=== PATIENT | female | born 1930 | race Caucasian/White ===

== ENCOUNTER 2016-11-04 17:49 | Inpatient (IN) | payer OTHER ==
[~2016-11-04] VITALS: Ht 152.4 cm; Wt 68.0 kg
--- NOTE | 2016-11-04 18:03 | NUR ---
PT STATES SHE HAS HAD CHEST PAIN ON AND OFF FOR A WHILE WENT TO SEE HER PCP AND HAD EKG CHANGES SO SHE WAS SENT IN FOR EVAL. PT STATES SHE DOES HAVE SLIGHT CHEST PAIN RIGHT NOW AND SHE IS FEELING DIZZY. PT DENIES DIAPHORESIS DURING HER CHEST DISCOMFORT.
[2016-11-04] MEDS ORDERED: METFORMIN HCL500 M3 PO (18:17)
[2016-11-04] MEDS ORDERED: LOSARTAN-HCTZ1 EAC1 PO (18:17)
[2016-11-04] MEDS ORDERED: CITALOPRAM HBR20 MG PO (18:17)
[2016-11-04] MEDS ORDERED: GABAPENTIN100 M2 PO (18:18)
--- NOTE | 2016-11-04 18:32 | NUR ---
FAMILIA GARCIA TO BEDSIDE FOR PT EVAL.
[2016-11-04 18:40] LABS: ABSOLUTE BASOPHIL COUNT 0 /CUMM (0.0-0.2); ABSOLUTE EOSINOPHIL COUNT 0.1 /CUMM (0.0-0.7); ABSOLUTE GRANULOCYTE CT 3.5 /CUMM (1.4-6.5); ABSOLUTE LYMPH COUNT 1.9 /CUMM (1.2-3.4); ABSOLUTE MONOCYTE COUNT 0.5 /CUMM (0.10-0.60); BASOPHIL % 0.4 % (0.0-2.0); EOSINOPHIL % 1.6 % (0-5); GRANULOCYTE % 58.2 % (42.2-75.2); HEMATOCRIT 39.5 % (37-47); MEAN CORPUSCULAR HGB CONC 32.6 G/DL (33.0-37.0); MEAN CORPUSCULAR VOLUME 82.8 FL (81.0-99.0); MEAN PLATELET VOLUME 7.7 FL (7.4-10.4); PLATELET COUNT 270 /CUMM (130-400); RBC DISTRIBUTION WIDTH 14.6 % (11.5-14.5); RED BLOOD CELL CT 4.77 /CUMM (4.20-5.40)
--- NOTE | 2016-11-04 18:43 | ED CARDIAC/CP/PALPITATIONS ---
History of Present Illness General Chief Complaint: Chest Pain Stated Complaint: SIB DR. APONTE FOR EVAL OF ABNORMAL EKG Source: patient, family, old records Exam Limitations: no limitations Vital Signs & Intake/Output Vital Signs & Intake/Output Vital Signs Date Time Temp Pulse Resp B/P B/P Pulse O2 O2 Flow FiO2 Mean Ox Delivery Rate 11/04 2252 98.0 74 20 122/80 96 11/04 2226 95.7 73 16 130/56 97 Room Air 11/04 2000 95.4 80 16 119/74 97 Room Air 11/04 1833 97 Room Air 11/04 1803 97.1 82 16 144/81 96 Room Air Allergies Coded Allergies: Iodinated Contrast Media - Oral and (PER PT STATES SHE TAKES AN ALTERNATIVE VERSION 11/04/16) Sulfa (Sulfonamide Antibiotics) (PT DOESNT REMEMBER 11/04/16) ciprofloxacin (UNKNOWN 11/04/16) shellfish derived (ANAPHYLAXIS 11/04/16) Triage Note: PT STATES SHE HAS HAD CHEST PAIN ON AND OFF FOR A WHILE WENT TO SEE HER PCP AND HAD EKG CHANGES SO SHE WAS SENT IN FOR EVAL. PT STATES SHE DOES HAVE SLIGHT CHEST PAIN RIGHT NOW AND SHE IS FEELING DIZZY. PT DENIES DIAPHORESIS DURING HER CHEST DISCOMFORT. Triage Nurses Notes Reviewed? yes Onset: Abrupt Duration: week(s):, intermittent Timing: recent history Radiation: no radiation Activities at Onset: none HPI: 86-year-old female comes into the emergency room for further evaluation of intermittent chest pain and EKG changes that were reported by her primary care doctor. 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 Patient went to a cardiac workup with Dr. Hung's group and had an abnormal stress test. Patient was following up with her primary care doctor today and had a routine EKG done which showed some changes from the previous. She also admitted that she was having some intermittent chest pain. She denies any shortness of breath or current chest pain. Denies any diaphoresis or vomiting. Denies any other associated symptoms. (ERIK CONTRERAS) Reconcile Medications Citalopram Hydrobromide (Citalopram HBr) 20 MG TABLET 2 TAB PO DAILY ANXIETY (Reported) Gabapentin 100 MG CAPSULE 1 CAP PO BID NERVE PAIN (Reported) Losartan/Hydrochlorothiazide (Losartan-Hctz 50-12.5 MG Tab) 50 MG-12.5 MG TABLET 1 TAB PO DAILY BP (Reported) Metformin HCl 500 MG TABLET 1 TAB PO BID DM (Reported) (INNA VAZQUEZ,NAMRATA Lr) Past History Travel History Traveled to [place] past 21 day No Medical History Any Pertinent Medical History? see below for history EENT: TINITIS Endocrine: diabetes Surgical History Surgical History: left knee Psychosocial History What is your primary language French Tobacco Use: Never used ETOH Use: occasional use Illicit Drug Use: denies illicit drug use Family History Hx Contributory? No (ERIK CONTRERAS) Review of Systems Review of Systems Constitutional: Reports: no symptoms. EENTM: Reports: no symptoms. Respiratory: Reports: no symptoms. Cardiovascular: Reports: see HPI. GI: Reports: no symptoms. Genitourinary: Reports: no symptoms. Musculoskeletal: Reports: no symptoms. Skin: Reports: no symptoms. Neurological/Psychological: Reports: no symptoms. Hematologic/Endocrine: Reports: no symptoms. Immunologic/Allergic: Reports: no symptoms. All Other Systems: Reviewed and Negative (ERIK CONTRERAS) Physical Exam Physical Exam General Appearance: well developed/nourished, alert, awake Head: atraumatic, normal appearance Eyes: Bilateral: normal appearance. Ears, Nose, Throat: normal pharynx, normal ENT inspection, hearing grossly normal Neck: normal inspection Respiratory: normal breath sounds, no respiratory distress Cardiovascular: regular rate/rhythm Gastrointestinal: soft, non-tender Back: normal inspection Extremities: normal inspection, no edema Neurologic/Psych: awake, alert, oriented x 3, normal gait Skin: intact, normal color Core Measures ACS in differential dx? Yes Severe Sepsis Present: No Septic Shock Present: No (ERIK CONTRERAS) Progress Differential Diagnosis: AMI, aortic dissection, atrial fibrillation, cholecystitis, costochondritis, hyperkalemia, intracranial hemorrhage, musculoskeletal pain, myocarditis, pancreatitis, pericarditis, pneumonia, pneumothorax, PSVT, pulmonary embolism, PUD/GERD, respiratory failure, rib fracture, sepsis, unstable angina, V-fib/V-Tach, WPW syndrome Plan of Care: Orders Procedure Date/time Status Regular Diet 11/05 B Active TROPONIN LEVEL 11/05 599 Active LIPID PANEL 11/05 599 Active CBC WITHOUT DIFFERENTIAL 11/05 599 Active BASIC ELECTROLYTES PLUS BUN&CR 11/05 599 Active EKG 04/25 0600 Active TROPONIN LEVEL 11/05 0000 Active EKG 11/05 0000 Active Consistent Carbohydrate 2 11/04 D Complete Teach/Educate 11/04 2226 Active Pain Treatment and Response 11/04 2226 Active Nutritional Intake, Monitor 11/04 2226 Active Isolation 11/04 2226 Active Patient Care Conference 11/04 2226 Active Code Status 11/04 2199 Active Code Status 11/04 2140 Complete OXYGEN SETUP (GEN) 11/04 2138 Active Saline Lock 11/04 2138 Active Misc Message 11/04 2138 Active ED Holding Orders 11/04 2138 Active Activity/Ambulation 11/04 2138 Active Admit to inpatient 11/04 2137 Active Pathway - chart 11/05 2127 Active Patient Data 11/04 2050 Active Intake & Output 11/04 183 Active Telemetry/Virtualization Consultant 11/04 1816 Active TROPONIN LEVEL 11/04 181 Complete COMPREHENSIVE METABOLIC PANEL 11/04 1816 Complete CBC WITHOUT DIFFERENTIAL 11/04 181 Complete B-TYPE NATRIURETIC PEP (BNP) 11/04 1816 Complete EKG 11/04 1750 Active Pathway - chart 11/04 UNK Active House Staff 11/04 UNK Active VTE Mechanical Prophylaxis 11/04 UNK Active Vital Signs 11/04 UNK Active FingerStick- Glucose 11/04 UNK Active ECHOCARDIOGRAM 11/04 UNK Active Current Medications Sig/Angela Start time Last Medication Dose Stop Time Status Admin Atorvastatin Calcium 80 MG 1700 11/05 1700 AC (Lipitor) Citalopram 40 MG DAILY 11/05 1000 AC Hydrobromide (Celexa) Losartan Potassium 50 MG DAILY 11/05 1000 AC (Cozaar) Multivitamins 1 TAB DAILY 11/05 1000 CAN (Theragran Vitamins) Insulin Aspart 0 TIDAC 11/05 0800 CAN (NovoLOG) Metformin HCl 500 MG 0800,1700 11/05 0800 AC (Glucophage) Gabapentin 100 MG BID 11/04 2200 AC 11/04 (Neurontin) 2232 Heparin Sodium 5,000 UNIT Q8 11/04 2199 AC (Porcine) Acetaminophen 650 MG Q6P PRN 11/04 2129 AC (Tylenol) Acetaminophen/ 1 TAB Q6P PRN 11/04 2129 AC Hydrocodone Bitart (Vicodin) Hydromorphone HCl 0.5 MG Q4P PRN 11/04 2129 AC (Dilaudid) Laboratory Tests 11/04/16 1830: Anion Gap 12, Estimated GFR > 60, BUN/Creatinine Ratio 22.9, Glucose 107 H, Calcium 9.4, Total Bilirubin 0.5, AST 18, ALT 33, Alkaline Phosphatase 99, Troponin I < 0.01, Bvb-J-Hjynoobzwts Pept 173 H, Total Protein 6.8, Albumin 3.9 , Globulin 2.9, Albumin/Globulin Ratio 1.3, CBC w Diff NO MAN DIFF REQ, RBC 4.77 , MCV 82.8, MCH 27.0, RDW 14.6 H, MPV 7.7, Gran % 58.2, Lymphocytes % 31.3, Monocytes % 8.5, Eosinophils % 1.6, Basophils % 0.4, Absolute Granulocytes 3.5, Absolute Lymphocytes 1.9, Absolute Monocytes 0.5, Absolute Eosinophils 0.1, Absolute Basophils 0, PUBS MCHC 32.6 L Diagnostic Imaging: Viewed by Me: Radiology Read. Discussed w/RAD: Radiology Read. Radiology Impression: EXAM TYPE: RAD - XRY-PORTABLE CHEST XRAY EXAMINATION: XR PORTABLE CHEST CLINICAL INFORMATION: Chest pain COMPARISON: Chest x-ray 2013 TECHNIQUE: Portable AP view of the chest was obtained. 7:09 PM FINDINGS: Emphysematous hyperinflation of lungs. Lungs are clear. There is no acute change of chest. No infiltrate or pleural effusion. No pneumothorax. Multilevel degenerative spurring of dorsal spine vertebrae. IMPRESSION: No acute abnormality the chest. DICTATED BY: OLY MACKEY MD DATE/TIME DICTATED:11/04/162000 Initial ED EKG: normal intervals, normal p-waves, nonspecific ST T wave chg Prior EKG: changed (ERIK CONTRERAS) Departure Departure Disposition: STILL A PATIENT Condition: Stable Clinical Impression Primary Impression: Acute electrocardiogram changes Secondary Impressions: Chest pain Referrals: APONTE ABDIRASHID VAZQUEZ (PCP/Family) Departure Forms: Customer Survey General Discharge Information Admission Note Spoke With: DAILY FERNÁNDEZ MD Documentation of Exam: Documentation of any treatments & extenuating circumstances including Concerns Regarding Discharge (functional status, medication knowledge or non-compliance, living conditions, etc.) that warrant an admission rather than observation: Spoke with Dr. Burciaga. He agrees patient will be admitted. Cardiac telemetry. Serial EKGs. Serial troponins. Cardiac consult. Consider echocardiogram. Repeat labs. High risk. (ERIK CONTRERAS) PA/FIBER PRODUCT CUTTING MACHINE OPERATOR Co-Sign Statement Statement: ED Attending supervision documentation- [X] I saw and evaluated the patient. I have also reviewed all the pertinent lab results and diagnostic results. I agree with the findings and the plan of care as documented in the PA's/FIBER PRODUCT CUTTING MACHINE OPERATOR's documentation. [X] I have reviewed the ED Record and agree with the PA's/FIBER PRODUCT CUTTING MACHINE OPERATOR's documentation. [] Additions or exceptions (if any) to the PAs/FIBER PRODUCT CUTTING MACHINE OPERATOR's note and plan are summarized below: [] (INNA VAZQUEZ,NAMRATA Lr) Critical Care Note Critical Care Note Critical Care Time: non-applicable (ERIK CONTRERAS)
--- NOTE | 2016-11-04 19:08 | NUR ---
RAD TO BEDSIDE FOR CHEST XRAY.
--- NOTE | 2016-11-04 19:38 | NUR ---
PT RESTING ON STRETCHER, NO DISTRESS NOTED. WILL CONTINUE TO MONITOR.
--- NOTE | 2016-11-04 20:06 | RADIOLOGY REPORT ---
EXAMINATION: XR PORTABLE CHEST CLINICAL INFORMATION: Chest pain COMPARISON: Chest x-ray 11/30/2013 TECHNIQUE: Portable AP view of the chest was obtained. 7:09 PM FINDINGS: Emphysematous hyperinflation of lungs. Lungs are clear. There is no acute change of chest. No infiltrate or pleural effusion. No pneumothorax. Multilevel degenerative spurring of dorsal spine vertebrae. IMPRESSION: No acute abnormality the chest.
--- NOTE | 2016-11-04 20:27 | NUR ---
PT CONTINUES TO REST ON STRETCHER. PT REMAINS ON HEART MONITOR.
--- NOTE | 2016-11-04 20:30 | NUR ---
FAMILIA VALENCIA AT BEDSIDE TO EXPLAIN POC.
--- NOTE | 2016-11-04 21:00 | NUR ---
PT TO COMMODE WITH ASSISTANCE.
--- NOTE | 2016-11-04 21:01 | History & Physical ---
LASHAWN VAZQUEZ,FAWAD 11/04/16 2100: General Information and HPI MD Statement: I have seen and personally examined KUSHAL MASCORRO and documented this H&P. The patient is a 86 year old F who presented with a patient stated chief complaint of []. Source of Information: patient Exam Limitations: no limitations History of Present Illness: Patient is an 86-year-old female with significant past medical history of osteoarthritis, diabetes, hypertension, asthma, anxiety, depression, history of diverticulitis, history of PE after the surgery, presented with the chief complaints of intermittent chest pain since last 4 months. According to her, she had undergone arthroscopic surgery, of left knee in July. During that time she had detailed evaluation of her heart as her stress test was positive. It was done by Dr. Kasandra muniz. Since last 3-4 month she is having intermittent chest pain, both on the rest and the walking which last for couple of seconds or minutes, located in the center of the chest. It is relieved by itself.Today when she went to show her PCP, she started having chest pain and EKG was done which showed some changes, that's why she was sent to [facility] for further management Of note, patient recently had flu around couple of weeks ago, after which she started having cough and expectoration for that she took a course of antibiotic. She denies fever, chills, dysuria, abdominal pain. Past medical history-history of PE after surgery, hypertension, asthma, anxiety, depression, history of diverticulitis, osteoarthritis,DM, parathyroidectomy, removal of intestine ? 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 Allergies -hydrocodone, fish, Family history -Mother-TIA/dementia, Father - diabetes Allergies/Medications Allergies: Coded Allergies: Iodinated Contrast Media - Oral and (PER PT STATES SHE TAKES AN ALTERNATIVE VERSION 11/04/16) Sulfa (Sulfonamide Antibiotics) (PT DOESNT REMEMBER 11/04/16) ciprofloxacin (UNKNOWN 11/04/16) shellfish derived (ANAPHYLAXIS 11/04/16) Past History Travel History Traveled to [place] past 21 day No Medical History EENT: TINITIS Endocrine: diabetes Surgical History Surgical History: left knee Past Family/Social History Psychosocial History ETOH Use: occasional use Illicit Drug Use: denies illicit drug use Review of Systems Review of Systems Constitutional: Denies: no symptoms. EENTM: Denies: no symptoms. Cardiovascular: Reports: chest pain. Denies: edema, orthopena, palpitations, peripheral edema, syncope. Respiratory: Denies: no symptoms. GI: Denies: no symptoms. Genitourinary: Denies: no symptoms. Musculoskeletal: Denies: no symptoms. Skin: Reports: moles. Neurological/Psychological: Denies: no symptoms. Exam & Diagnostic Data Last 24 Hrs of Vital Signs/I&O Vital Signs Date Time Temp Pulse Resp B/P B/P Pulse O2 O2 Flow FiO2 Mean Ox Delivery Rate 11/04 2252 98.0 74 20 122/80 96 11/04 2226 95.7 73 16 130/56 97 Room Air 11/04 2000 95.4 80 16 119/74 97 Room Air 11/04 1833 97 Room Air 11/04 1803 97.1 82 16 144/81 96 Room Air Intake & Output 11/05 0800 11/05 0000 11/04 1600 Intake Total Output Total Balance Patient 68.039 kg Weight Weight Reported by Patient Measurement Method Physical Exam General Appearance Alert, Oriented X3, Cooperative, No Acute Distress Skin small wart was there on mid part of back( pt was concerned for it), HEENT Atraumatic, PERRLA, EOMI Neck Supple, No JVD Cardiovascular Normal S1, Normal S2 Lungs Clear to Auscultation, Normal Air Movement Abdomen Soft, No Tenderness, scar brenda on middle part of lower abdoman, there is also palpable ? hernia on upper part of Umbilicus. Neurological Normal Speech, Strength at 5/5 X4 Ext Extremities No Clubbing, No Cyanosis, No Edema Vascular Normal Pulses, Pulses Symmetrical Last 24 Hrs of Labs/Asher: Laboratory Tests 11/05/16 0030: Troponin I Pending 11/04/161829: Anion Gap 12, Estimated GFR > 60, BUN/Creatinine Ratio 22.9, Glucose 107 H, Calcium 9.4, Total Bilirubin 0.5, AST 18, ALT 33, Alkaline Phosphatase 99, Troponin I < 0.01, Ndn-L-Edfwtieddmq Pept 173 H, Total Protein 6.8, Albumin 3.9 , Globulin 2.9, Albumin/Globulin Ratio 1.3, CBC w Diff NO MAN DIFF REQ, RBC 4.77 , MCV 82.8, MCH 27.0, RDW 14.6 H, MPV 7.7, Gran % 58.2, Lymphocytes % 31.3, Monocytes % 8.5, Eosinophils % 1.6, Basophils % 0.4, Absolute Granulocytes 3.5, Absolute Lymphocytes 1.9, Absolute Monocytes 0.5, Absolute Eosinophils 0.1, Absolute Basophils 0, PUBS MCHC 32.6 L Diagnostic Data EKG Results HR 73, PAC's, inverted T wave- II,III, aVF, V3-V6, [id number] CXR Results CXR -No acute abnormality the chest. Assessment/Plan Assessment: Patient is an 86-year-old female with significant past medical history of osteoarthritis, hypertension, asthma, anxiety, depression, history of diverticulitis, history of PE after the surgery, presented with the chief complaints of intermittent chest pain since last 4 months. According to her, she had undergone arthroscopic surgery, of left knee in July. During that time she had detailed evaluation of her heart as her stress test was positive. It was done by Dr. William muniz. She is having intermittent chest pain, both on the rest and the walking which last for couple of seconds or minutes, located in the center of the chest. It is relieved by itself.Today when she went to show her PCP, she started having chest pain and EKG was done which showed some changes, that's why she was sent to [facility] for further management. Vital signs at the time of admission - temperature 97.1, pulse 82, respiratory rate 16, blood pressure 140/81, SPO2 96% on room air. Chest x-ray -no acute cardiopulmonary abnormality EKG - HR 73, PAC's, inverted T wave- II,III, aVF, V3-V6, [id number] Pertinent labs -CBC within normal limits,K-3.8, Glu -107, proBNP-173, Past labs - HbA1c 7.7, TSH - 0.112 Plan - Acute coronary syndrome - * We will place a consult for cardiology * Patient is refusing for all kind of intervention including coronary angiogram * We will do serial troponins and EKG. Initial 2 sets are negative. EKG showed similar T-wave inversions second, third, aVF and V2 to V6 * We will start patient on tab aspirin 81 mgs once a day, high-dose atorvastatin 80 milligrams and metoprolol 6.25 milligrams twice a day. * We will follow Lipid panel * H, and recently had echocardiogram and according to quality assurance advisor if required, then we will repeat it. Type 2 diabetes- * We will check blood sugar TID/HS * Patient does not want to have insulin, so we will continue metformin at home doses. * We will continue gabapentin for peripheral neuropathy(according to the patient. She is taking it for tinnitus) Hypertension * We will continue losartan Hyperlipidemia * We will continue atorvastatin at high doses Anxiety and depression * We'll continue citalopram at home doses Diet-carbohydrate type II. Diet DVT prophylaxis-ALP S/heparin CODE STATUS-DNR/DNI Please update the daughter Christine at [phone], of any major events. As Ranked By This Provider Problem List: 1. CAD (coronary artery disease) 2. DM (diabetes mellitus) 3. Asthma 4. Anxiety 5. Depression 6. Osteoarthritis Core Measures/Miscellaneous Acute Coronary Syndrome ACS Diagnosis: No Cerebrovascular Accident CVA/TIA Diagnosis: No Congestive Heart Failure CHF Diagnosis: No Venous Thromboembolism VTE Risk Factors: Age > 40 [facility] prophylaxis d/t: No contraindications No VTE Pharm Prophylaxis d/t: No contraindications VTE Diagnosis: No VTE Type: NONE VTE Confirmed by (Test): NONE Severe Sepsis Severe Sepsis Present: No Septic Shock Septic Shock Present: No Miscellaneous Documentation Attending Case Discussed With: DAILY FERNÁNDEZ MD Primary Care Physician: ABDIRASHID APONTE MD Patient sees these Specialists 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 - Dr Garrett Level of Patient Care: Telemetry CHEYENNE HORVATH 11/04/163: General Information and HPI Allergies/Medications Home Med list Citalopram Hydrobromide (Citalopram HBr) 20 MG TABLET 2 TAB PO DAILY ANXIETY (Reported) Gabapentin 100 MG CAPSULE 1 CAP PO BID NERVE PAIN (Reported) Losartan/Hydrochlorothiazide (Losartan-Hctz 50-12.5 MG Tab) 50 MG-12.5 MG TABLET 1 TAB PO DAILY BP (Reported) Metformin HCl 500 MG TABLET 1 TAB PO BID DM (Reported) Resident Review Statement Resident Statement: examined this patient, discussed with sport internship, agreed with sport internship, discussed with family, reviewed EMR data (avail), discussed with nursing , discussed with case mgmt, reviewed images, amended to note Other Findings: 86-year-old woman with a past medical history of hypertension, non-insulin- dependent diabetes mellitus, depression, neuropathy most likely diabetic, presents to the ER for further evaluation of intermittent chest pain and EKG changes after she saw her primary care physician earlier this morning. Of note patient had a left knee replacement back in July and underwent a cardiac workup with Dr. Slaughter's group and was found to have an abnormal stress test. She followed up with her primary care physician today and on routine EKG was found to have some changes that were different from previous. She was also complaining of intermittent chest pain denied any shortness of breath diaphoresis or vomiting. She was sent to the ER for further evaluation. According to the patient she's been having intermittent episodes of sharp substernal chest pain that on an average occur about twice every 3 weeks since her knee surgery back in July. She denies any dyspnea on exertion, lifting anything heavy, and radiation of chest pain, heartburn, fever, chills. However that she did have an episode of upper respiratory tract infection about 3 weeks ago where she was coughing and bringing up purulent phlegm and was started on antibiotics. She denies any swelling in her lower extremities, dizziness, lightheadedness, palpitations, abdominal pain, nausea, vomiting, urinary complaints. Vitals on admission blood pressure 144/81, pulse 82, respiratory rate 16, afebrile saturating 96% on room air. On physical exam, she is alert and oriented 3 and in no acute distress lying comfortably in bed. HEENT revealed PERRLA, moist mucous membranes. Examination of the neck did not reveal an elevated JVD, cervical lymphadenopathy. Cardiovascular exam revealed no murmurs rubs or gallops appreciated. Respiratory exam was unremarkable chest clear to auscultation bilaterally. Abdominal exam was benign with abdomen soft, nontender, nondistended with normal bowel sounds in all 4 quadrants. Neuro exam was grossly unremarkable examination of the lower extremities revealed trace bilateral edema, with left knee >> right Labs pertinent for an H&H of 12.9/39.5, white blood cell count of 6000, platelet count of 270,000. Serum chemistries reveal a sodium of 137, potassium of 3.8, bicarbonate of 27, anion gap 12, BUN 16 and creatinine of 0.7. LFTs unremarkable with an AST/L2 18/33, alkaline phosphatase of 99, troponin less than 0.01, pro BNP elevated to 173. Last hemoglobin A1c was in October 24.7 Chest x-ray revealed in size and mediastinum hyperinflation of lungs, no acute infiltrate, pleural effusion or pneumothorax. She does have multilevel degenerative spurring of the dorsal spine vertebrae. EKG revealed normal sinus rhythm with a heart rate of 73, PVC, T-wave inversions in V3 to V5 and mild ST-T depressions with poor R-wave progression. EKG from the doctor's office earlier on revealed heart rate of 74, PVCs, normal sinus rhythm with T Friday inversions in V2 to V4 (changedfrom prev ecg) Assessement and Plan Admit patient to telemetry #Typical chest pain Rule out ACS with troponins and EKG at midnight and 6 AM Echocardiogram to further evaluate regional wall motion abnormalities Cardiology consult in a.m. with Dr. Garrett's group Administer aspirin 325 mg 1 and start her on aspirin 81 mg daily tomorrow Continue on losartan 50 mg daily Start on metoprolol 6.25 mg twice a day Administer atorvastatin 80 mg at bedtime Patient does not want to have cardiac catheterization. Will check D-dimer given recent history of knee surgery # Zwk-vqkrkqg-rsljhtvbs diabetes mellitus Continue on metformin for now, as she refuses insulin injections. Accu-Cheks 3 times a day at bedtime # Diabetic neuropathy Continue on gabapentin #Depression Continue on citalopram - DVT prophylaxis Heparin 5000 international units 3 times a day subcutaneous CODE STATUS DNR/DNI Does not want central lines, pressors DAILY FERNÁNDEZ 11/05/16 0225: Attending MD Review Statement Attending Statement Attending MD Statement: examined this patient, discuss w/resident/PA/HEADLIGHT ADJUSTER, agreed w/resident/PA/HEADLIGHT ADJUSTER, discussed with family, reviewed EMR data (avail), reviewed images, amended to note Attending Assessment/Plan: CC: Abnormal EKG PMH: DM, borderline hypertension (patient denied history of hypertension, and says that she is on antihypertensive because of her diabetes) Patient went to see her PCP as regular visit, lab work was obtained and EKG was obtained which showed some changes. So she was asked more questions about pain when she admitted that she has been getting chest pain since last 4 months on and off. She had one episode earlier today, So she was sent to ER. She describes pain as substernal, pressure-like, nonradiating to arm or jaw, sometimes radiating to her both breasts, not related to exertion or eating, not associated with dyspnea, diaphoresis, palpitations, presyncopal symptoms. She underwent knee replacement on the left side (previous surgery was 18 years back, she injured it so underwent second knee replacement on that side), at that time she was investigated with stress test, and was found to have some defect. But at that time she denied any symptoms, so cardiology cleared her for surgery. PCP compared her today's EKG with one done preop and he saw changes so he sent her to ER. Vitals: Unremarkable On exam: very pleasant, A O 3, cooperative, no acute distress, neck supple, JVD normal, no lymphadenopathy, mucosa moist, no focal neurological deficit, left knee is bigger than right knee, trace edema lower extremities left more than right, no obvious skin rashes or inflammation CVS: S1-S2, RRR. RS: Clear to auscultate bilaterally. Abdomen: Soft, NT, ND, old scar, ?Reducible hernia, bowel sounds present. Labs: CBC, BMP, LFT, troponin, proBNP unremarkable CXR: No acute abnormalities EKG: T wave inversions in lateral leads A and P Patient came with abnormal EKG from PCP office, then admits having on and off chest pain since last 4 months, nonexertional, substernal, not radiating to arm or jaw, no aggravating or relieving factors, subsides on its own. Stress test done around July showed some defect. Patient is very clear about what she wants and how much she wants. (Of note She does not want in-house insulin, she does not want cardiac catheterization, she is DNR, DNI, no central lines or pressors.) She is very active at baseline, up and working for about 4 hours as her knee pain bothers her. # Chest pain with nonspecific EKG changes, rule out ACS # History of DM # History of hypertension # Recent knee surgery in July - Admit to telemetry floor - Serial EKG, troponin - Cardiology consult for morning - Continue metformin, losartan, HCTZ, gabapentin, citalopram - Check d-dimer - DNR, DNI
--- NOTE | 2016-11-04 21:53 | NUR ---
HOUSESTAFF AT BEDSIDE.
--- NOTE | 2016-11-04 22:07 | NUR ---
PT GOING TO ROOM 185-1.
--- NOTE | 2016-11-04 22:20 | NUR ---
REPORT GIVEN TO RIGOBERTO GA ON TELEMETRY.
[2016-11-04 22:53] VITALS: BP 122/80
--- NOTE | 2016-11-05 02:26 | Admission Certification ---
Admission Certification Certification Statement - As attending physician, I certify that at the time of - admission, based on clinical presentation, severity of - symptoms, need for further diagnostic testing and - therapeutic interventions, and risk of adverse outcomes - without in-hospital treatment, in my clinical assessment, - this patient requires an acute hospital stay for a minimum - of two nights or longer. I have also considered psychsocial - factors such as support system, advanced age, financial - issues, cognitive issues, and failed out-patient treatments, - past re-admission history, safety of patient, and lack of - compliance as applicable. Specific rationale supporting this admission is: chest pain, T wave changes
--- NOTE | 2016-11-05 07:31 | PN- Housestaff ---
Subjective Follow-up For: Chest pain Tele-Events Since Last Visit: Sinus rhythm HR 68-90 No events Subjective: No acute events overnight. Patient seen and examined this morning. She continues to have brief intermittent episodes of chest pain that resolve spontaneously. She has no other complaints. She is eager to be discharged home and adamantly refuses any invasive procedures including cardiac catheterization. Review of Systems Constitutional: Reports: see HPI. Objective Last 24 Hrs of Vital Signs/I&O Vital Signs Date Time Temp Pulse Resp B/P B/P Pulse O2 O2 Flow FiO2 Mean Ox Delivery Rate 11/05 0903 98.3 66 19 122/80 94 Room Air 11/05 0823 74 122/80 11/04 2253 98.0 74 20 122/80 96 11/04 2226 95.7 73 16 130/56 97 Room Air 11/04 2000 95.4 80 16 119/74 97 Room Air Intake & Output 11/05 1600 11/05 0800 11/05 0000 Intake Total 490 250 Output Total Balance 490 250 Intake, IV 10 10 Intake, Oral 480 240 Number 1 Bowel Movements Patient 68.039 kg Weight Weight Reported by Patient Measurement Method Physical Exam General Appearance: Alert, Oriented X3, No Acute Distress HEENT: Atraumatic, Mucous Membr. moist/pink Neck: Supple Cardiovascular: Regular Rate, Normal S1, Normal S2, No Murmurs, Gallops, Rubs Lungs: Clear to Auscultation Abdomen: Soft, No Tenderness, Positive Bowel Sounds Extremities: No Clubbing, No Cyanosis, No Edema Current Medications: Current Medications Sig/Angela Start time Last Medication Dose Route Stop Time Status Admin Acetaminophen 650 MG Q6P PRN 11/04 2129 DCD PO Acetaminophen/ 1 TAB Q6P PRN 11/04 2129 DCD Hydrocodone Bitart PO Atorvastatin Calcium 80 MG 1700 11/05 1700 DCD 11/05 PO 1643 Citalopram 40 MG DAILY 11/05 1000 DCD 11/05 Hydrobromide PO 0822 Gabapentin 100 MG BID 11/04 2199 DCD 11/05 PO 0823 Heparin Sodium 5,000 UNIT Q8 11/04 2199 DCD (Porcine) SC Hydromorphone HCl 0.5 MG Q4P PRN 11/04 2129 DCD IV Insulin Aspart 0 TIDAC 11/05 0800 CAN SC Losartan Potassium 50 MG DAILY 11/05 1000 DCD 11/05 PO 0823 Metformin HCl 500 MG 0800,1700 11/05 0800 DCD 11/05 PO 1643 Metoprolol Tartrate 6.25 MG BID 11/04 2200 DC PO Multivitamins 1 TAB DAILY 11/05 1000 CAN PO Patient Medication 1 ED .STK-MED ONE 11/05 1355 DC Teaching ED 11/05 1356 Ranolazine 500 MG BID 11/05 1130 DC PO Last 24 Hrs of Lab/Asher Results Last 24 Hrs of Labs/Mics: Laboratory Tests 11/05/16 0634: Anion Gap 9, Estimated GFR > 60, BUN/Creatinine Ratio 20.0, Troponin I < 0.01, Triglycerides 119, Cholesterol 163, LDL Cholesterol, Calc 87, HDL Cholesterol 53 , Cholesterol/HDL Ratio 3, D-Dimer 747 H, CBC w Diff NO MAN DIFF REQ, RBC 4.59, MCV 82.0, MCH 27.9, RDW 14.0, MPV 8.5, Gran % 47.0, Lymphocytes % 39.1, Monocytes % 10.6 H, Eosinophils % 2.5, Basophils % 0.8, Absolute Granulocytes 2.5, Absolute Lymphocytes 2.1, Absolute Monocytes 0.6, Absolute Eosinophils 0.1, Absolute Basophils 0, PUBS MCHC 34.0 11/05/16 0030: Troponin I < 0.01 Orders Miscellaneous Findings: BLE Doppler US: 1. No evidence of deep venous thrombosis in the right or left lower extremity. 2. Small right-sided popliteal cyst. Assessment/Plan Assessment: 86 y/o F with PMHx of T2DM, HTN and post-operative PE who presents with intermittent chest pain of several months duration. #Chest pain: Presents with recurrent intermittent episodes of atypical chest discomfort that resolve spontaneously. ACS ruled out with serial troponins and EKG which were negative. Per cardiology, pain could be related to CAD given nonspecific findings on recent nuclear stress test. Patient adamantly refuses cardiac catheterization despite the risk of myocardial infarction. Of note BLE Doppler US was performed given elevated d-dimer (747) and history of PE but was negative for DVT. * Discharge home today with instructions to follow up with cardiology. * Per cardiology recommendations, will treat symptoms as if related to angina. Ranexa 500 mg PO BID added to discharge medications. * Decrease citalopram dose to 20 mg PO QHS daily from 20 mg PO BID as both Ranexa and citalopram are associated with QTC prolongation. * Patient instructed to have her EKG checked by her PCP next week to evaluate for QTC prolongation. Diet: Consistent Carbohydrate 2 DVT PPx: HSQ and ALPs CODE: DNR/DNI Problem List: 1. Chest pain 2. Abnormal nuclear stress test 3. Stable angina 4. History of pulmonary embolism Pain Ratin Pain Location: N/A Pain Goal: Remain pain free Pain Plan: Dilaudid 0.5 mg IV Q4H PRN for severe pain (scale 7-10) Vicodin 1 tab PO Q6H PRN for moderate pain (scale 4-6) Tylenol 650 mg PO Q6H PRN for mild pain (scale 1-3) Tomorrow's Labs & Rationales: None Discharge Plan Discharge Disposition: home Stable for Discharge? Yes Anticipated Discharge (Day): today
[2016-11-05 08:33] LABS: ABSOLUTE BASOPHIL COUNT 0 /CUMM (0.0-0.2); ABSOLUTE EOSINOPHIL COUNT 0.1 /CUMM (0.0-0.7); ABSOLUTE GRANULOCYTE CT 2.5 /CUMM (1.4-6.5); WHITE BLOOD CELL COUNT 5.3 /CUMM (4.8-10.8)
[2016-11-05 08:41] LABS: MEAN CORPUSCULAR HGB 27.9 PG (27.0-31.0); RED BLOOD CELL CT 4.59 /CUMM (4.20-5.40)
[2016-11-05 08:45] LABS: ABSOLUTE LYMPH COUNT 2.1 /CUMM (1.2-3.4); ABSOLUTE MONOCYTE COUNT 0.6 /CUMM (0.10-0.60); BASOPHIL % 0.8 % (0.0-2.0); EOSINOPHIL % 2.5 % (0-5); HEMATOCRIT 37.6 % (37-47); MEAN PLATELET VOLUME 8.5 FL (7.4-10.4); PLATELET COUNT 245 /CUMM (130-400)
[2016-11-05 09:03] VITALS: BP 122/80
--- NOTE | 2016-11-05 10:18 | Cons- Cardiology ---
General Information and HPI Consulting Request Date of Consult: 11/05/16 Requested By: YUVAL HOFFMAN MD Reason for Consult: Chest pain Source of Information: patient, old records Exam Limitations: no limitations History of Present Illness: The patient is a 86-year-old female with known history of diabetes, osteoarthritis, hypertension, asthma, history of postoperative pulmonary embolism who now presents with intermittent chest pain for the past few months. Patient states that she experiences episodes of a discomfort in her chest as a somebody punched her. It can occur with exertion or at rest. There was no associated nausea vomiting diaphoresis or shortness of breath. The symptoms last anywhere from 5-10 minutes then resolves spontaneously. She states that she went to see Dr. Camarena yesterday and initially did not mention the chest discomfort. She then described her symptoms, which she ultimately regretted, he obtained an EKG, which demonstrated nonspecific ST changes and recommended that she come to the emergency room for further evaluation. She states that while here in the hospital she has had brief intermittent episodes of chest discomfort that again resolved spontaneously. Of note is the fact that she underwent preop testing before her recent left total knee replacement. Her nuclear stress test demonstrated a combination of fixed and reversible anterolateral abnormality mostly likely related to shifting breast attenuation. Her echocardiogram demonstrated normal LV function. She was cleared for surgery and had an uncomplicated postoperative course. Allergies/Medications Allergies: Coded Allergies: Iodinated Contrast Media - Oral and (PER PT STATES SHE TAKES AN ALTERNATIVE VERSION 11/04/16) Sulfa (Sulfonamide Antibiotics) (PT DOESNT REMEMBER 11/04/16) ciprofloxacin (UNKNOWN 11/04/16) shellfish derived (ANAPHYLAXIS 11/04/16) Home Med List: Citalopram Hydrobromide (Citalopram HBr) 20 MG TABLET 2 TAB PO DAILY ANXIETY (Reported) Gabapentin 100 MG CAPSULE 1 CAP PO BID NERVE PAIN (Reported) Losartan/Hydrochlorothiazide (Losartan-Hctz 50-12.5 MG Tab) 50 MG-12.5 MG TABLET 1 TAB PO DAILY BP (Reported) Metformin HCl 500 MG TABLET 1 TAB PO BID DM (Reported) Current Medications: Current Medications Sig/Angela Start time Last Medication Dose Route Stop Time Status Admin Acetaminophen 650 MG Q6P PRN 11/04 2129 AC PO Acetaminophen/ 1 TAB Q6P PRN 11/04 2129 AC Hydrocodone Bitart PO Atorvastatin Calcium 80 MG 1700 04/25 1700 AC PO Citalopram 40 MG DAILY 11/05 1000 AC 11/05 Hydrobromide PO 0822 Gabapentin 100 MG BID 11/04 2199 AC 11/05 PO 0823 Heparin Sodium 5,000 UNIT Q8 11/04 2199 AC (Porcine) SC Hydromorphone HCl 0.5 MG Q4P PRN 11/04 2129 AC IV Insulin Aspart 0 TIDAC 11/05 08 CAN SC Losartan Potassium 50 MG DAILY 11/05 1000 AC 11/05 PO 0823 Metformin HCl 500 MG 0800,1700 11/05 0800 AC 11/05 PO 0822 Metoprolol Tartrate 6.25 MG BID 11/04 2199 DC PO Multivitamins 1 TAB DAILY 11/05 1000 CAN PO Review of Systems Review of Systems: Eyes no blurred or double vision Ears no deafness or ringing Nose and throat no recurrent sinusitis Lungs per history of present illness Heart per history of present illness Abdomen no nausea vomiting Musculoskeletal occasional muscle and joint pains Psych no anxiety or depression Neuro without recurrent headache or seizures Endocrine no heat or cold intolerance Past History Travel History Traveled to [place] past 21 day No Medical History Neurological: peripheral neuropathy EENT: T[place] Cardiovascular: hypertension Respiratory: asthma, pulmonary embolism Gastrointestinal: diverticulitis Hepatic: NONE Renal: NONE Musculoskeletal: osteoarthritis Psychiatric: anxiety, depression Endocrine: diabetes Blood Disorders: NONE Cancer(s): NONE [employer]PERINTENDENT/Reproductive: NONE Surgical History Surgical History: appendectomy, hysterectomy, left knee ANTERIOR CERVICAL DISC FUSION WITH GRAFT Psychosocial History Where Do You Live? Home Services at Home: None Smoking Status: Never Smoked ETOH Use: occasional use Illicit Drug Use: denies illicit drug use Exam & Diagnostic Data Vital Signs and I&O Vital Signs Date Time Temp Pulse Resp B/P B/P Pulse O2 O2 Flow FiO2 Mean Ox Delivery Rate 11/05 0903 98.3 66 19 122/80 94 Room Air 11/05 08 74 122/80 11/04 2252 98.0 74 20 122/80 96 11/04 222 95.7 73 16 130/56 97 Room Air 11/05 1999 95.4 80 16 119/74 97 Room Air 11/04 1833 97 Room Air 11/04 180 97.1 82 16 144/81 96 Room Air Intake & Output 11/05 1600 11/05 0800 11/05 0000 11/04 1600 11/04 0800 11/04 0000 Intake Total 250 Output Total Balance 250 Intake, IV 10 Intake, Oral 240 Patient 150 lb Weight Weight Reported by Patient Measurement Method Physical Exam: Patient is a well-developed well-nourished female appearing in no acute distress HEENT is unremarkable Neck is supple there is no JVD Lungs are clear Heart regular rhythm S1 and S2 are normal no murmurs gallops or rubs Abdomen bowel sounds positive Extremities without edema Labs/Asher Results: Laboratory Tests 11/05 11/05 0634 0030 Chemistry Sodium (137 - 145 mmol/L) 141 Potassium (3.5 - 5.1 mmol/L) 4.1 Chloride (98 - 107 mmol/L) 102 Carbon Dioxide (22 - 30 mmol/L) 30 Anion Gap (5 - 16) 9 BUN (7 - 17 mg/dL) 14 Creatinine (0.5 - 1.0 mg/dL) 0.7 Estimated GFR (>60 ml/min) > 60 BUN/Creatinine Ratio (7 - 25 %) 20.0 Troponin I (< 0.11 ng/ml) < 0.01 < 0.01 Triglycerides (<150 mg/dL) 119 Cholesterol (<200 MG/DL) 163 LDL Cholesterol, Calc (65 - 129 mg/dL) 87 HDL Cholesterol (40 - 60 mg/dL) 53 Cholesterol/HDL Ratio (0.00 - 4.23 %) 3 Coagulation D-Dimer (70 - 232 ng/ml) 747 H Hematology CBC w Diff NO MAN DIFF REQ WBC (4.8 - 10.8 /CUMM) 5.3 RBC (4.20 - 5.40 /CUMM) 4.59 Hgb (12.0 - 16.0 G/DL) 12.8 Hct (37 - 47 %) 37.6 MCV (81.0 - 99.0 FL) 82.0 MCH (27.0 - 31.0 PG) 27.9 RDW (11.5 - 14.5 %) 14.0 Plt Count (130 - 400 /CUMM) 245 MPV (7.4 - 10.4 FL) 8.5 Gran % (42.2 - 75.2 %) 47.0 Lymphocytes % (20.5 - 51.1 %) 39.1 Monocytes % (1.7 - 9.3 %) 10.6 H Eosinophils % (0 - 5 %) 2.5 Basophils % (0.0 - 2.0 %) 0.8 Absolute Granulocytes (1.4 - 6.5 /CUMM) 2.5 Absolute Lymphocytes (1.2 - 3.4 /CUMM) 2.1 Absolute Monocytes (0.10 - 0.60 /CUMM) 0.6 Absolute Eosinophils (0.0 - 0.7 /CUMM) 0.1 Absolute Basophils (0.0 - 0.2 /CUMM) 0 PUBS MCHC (33.0 - 37.0 G/DL) 34.0 11/04 1830 Chemistry Sodium (137 - 145 mmol/L) 137 Potassium (3.5 - 5.1 mmol/L) 3.8 Chloride (98 - 107 mmol/L) 99 Carbon Dioxide (22 - 30 mmol/L) 27 Anion Gap (5 - 16) 12 BUN (7 - 17 mg/dL) 16 Creatinine (0.5 - 1.0 mg/dL) 0.7 Estimated GFR (>60 ml/min) > 60 BUN/Creatinine Ratio (7 - 25 %) 22.9 Glucose (65 - 99 mg/dL) 107 H Calcium (8.4 - 10.2 mg/dL) 9.4 Total Bilirubin (0.2 - 1.3 mg/dL) 0.5 AST (14 - 36 U/L) 18 ALT (9 - 52 U/L) 33 Alkaline Phosphatase (<127 U/L) 99 Troponin I (< 0.11 ng/ml) < 0.01 [id number] Pept (<125 pg/mL) 173 H Total Protein (6.3 - 8.2 g/dL) 6.8 Albumin (3.5 - 5.0 g/dL) 3.9 Globulin (1.9 - 4.2 gm/dL) 2.9 Albumin/Globulin Ratio (1.1 - 2.2 %) 1.3 Hematology CBC w Diff NO MAN DIFF REQ WBC (4.8 - 10.8 /CUMM) 6.0 RBC (4.20 - 5.40 /CUMM) 4.77 Hgb (12.0 - 16.0 G/DL) 12.9 Hct (37 - 47 %) 39.5 MCV (81.0 - 99.0 FL) 82.8 MCH (27.0 - 31.0 PG) 27.0 RDW (11.5 - 14.5 %) 14.6 H Plt Count (130 - 400 /CUMM) 270 MPV (7.4 - 10.4 FL) 7.7 Gran % (42.2 - 75.2 %) 58.2 Lymphocytes % (20.5 - 51.1 %) 31.3 Monocytes % (1.7 - 9.3 %) 8.5 Eosinophils % (0 - 5 %) 1.6 Basophils % (0.0 - 2.0 %) 0.4 Absolute Granulocytes (1.4 - 6.5 /CUMM) 3.5 Absolute Lymphocytes (1.2 - 3.4 /CUMM) 1.9 Absolute Monocytes (0.10 - 0.60 /CUMM) 0.5 Absolute Eosinophils (0.0 - 0.7 /CUMM) 0.1 Absolute Basophils (0.0 - 0.2 /CUMM) 0 PUBS MCHC (33.0 - 37.0 G/DL) 32.6 L Telemetry personally reviewed sinus rhythm intermittent left bundle-branch block Diagnostic Data EKG Results Sinus rhythm nonspecific ST-T wave changes no significant change from prior tracing CXR Results IMPRESSION: No acute abnormality the chest. Assessment/Plan Assessment/Plan 1. Recurrent episodes of atypical chest discomfort that may indeed be related to coronary artery disease given her nonspecific findings on recent nuclear stress test. She has ruled out for an acute myocardial infarction. 2. Diabetes 3. Asthma by history 4. Osteoarthritis 5. Hypertension stable 6. Intermittent left bundle-branch block Recommendations 1. I had a long discussion with the patient regarding her symptoms and borderline positive nuclear stress test. Since she has had recurrent chest pain I do recommend that she undergo a cardiac catheterization which she adamantly refused. She is aware of the potential risk of a myocardial infarction. 2. She did agree to start medical therapy treating as if her symptoms are indeed related to angina. I therefore would recommend that she start Ranexa 500 mg twice a day. 3. Since she refuses any further testing I feel the patient can be discharged with close outpatient follow-up. She was instructed to return to the emergency room with any significant change in symptoms. Thank you for allowing [facility] to participate in the care of your patient. Consult Acknowledgment - Thank you for your consult request.
--- NOTE | 2016-11-05 10:22 | NUR ---
PT IS REFUSING HER HEPARIN SHOTS AND WEARING ALPS. MD AUDIE CASTRO MADE AWARE. WILL CONTINUE TO MONITOR.
[2016-11-05] MEDS ORDERED: RANEXA500 M1 PO (11:20)
--- NOTE | 2016-11-05 11:35 | Patient Discharge Instructions ---
Discharge Instructions General Discharge Information You were seen/treated for: Chest pain Watch for these problems: Difficulty breathing Worsening chest pain Pain in your jaw, neck, arm, stomach or back Nausea or vomiting Lightheadedness or cold sweat Special Instructions: Please follow up with your primary care physician Dr. Vamshi Camarena and insurance inspector Dr. Tay Burciaga within one week of discharge. Please return to the ED if you experience any significant changes in your symptoms. Please have your EKG checked next week (11/11/16 - 11/15/16) by your primary care physician. Diet Recommended Diet: Diabetic Activity Full Activity/No Limits: Yes Acute Coronary Syndrome Inclusion Criteria At DC or during hospital stay patient has or had the following: ACS DIAGNOSIS No Discharge Core Measures Meds if any: Prescribed or Continued at Discharge Meds if any: NOT Prescribed or Continued at Discharge Congestive Heart Failure Inclusion Criteria At DC or during hospital stay patient has or had the following: CHF DIAGNOSIS No Discharge Core Measures Meds if any: Prescribed or Continued at Discharge Meds if any: NOT Prescribed or Continued at Discharge Cerebrovascular accident Inclusion Criteria At DC or during hospital stay patient has or had the following: CVA/TIA Diagnosis No Discharge Core Measures Meds if any: Prescribed or Continued at Discharge Meds if any: NOT Prescribed or Continued at Discharge Venous thromboembolism Inclusion Criteria VTE Diagnosis No VTE Type NONE VTE Confirmed by (Test) NONE Discharge Core Measures - Per Current guidelines, there needs to be overlap - treatment for the first 5 days of Warfarin therapy. - If discharged on Warfarin prior to 5 days of - overlap therapy, the patient will need to be - assessed for post discharge needs including - *Post discharge parental anticoagulation - *Warfarin and/or parental anticoagulation education - *Follow up date to check INR post discharge At least 5 days overlap therapy as Inpatient No Meds if any: Prescribed or Continued at Discharge Note: Overlap Therapy is Warfarin and Anticoagulant Meds if any: NOT Prescribed or Continued at Discharge
--- NOTE | 2016-11-05 13:48 | NUR ---
PT IS REFUSING HER BLOOD GLUCOSE CHECK. MD AUDIE CASTRO MADE AWARE. WILL CONTINUE TO MONITOR.
--- NOTE | 2016-11-05 13:59 | ULTRASOUND REPORT ---
EXAMINATION: BILATERAL LOWER EXTREMITY VENOUS ULTRASOUND CLINICAL INFORMATION: Elevated d-dimer. Chest pain. Evaluate for DVT. History of knee replacement July 2016. COMPARISON: None TECHNIQUE: Doppler spectral analysis and color flow Doppler imaging was performed of the lower extremities. Compression and augmentation maneuvers were performed. FINDINGS: The right and left common femoral vein, greater saphenous vein takeoff, femoral vein, and popliteal vein are normally compressible with normal augmentation responses and phasic changes seen with Doppler imaging. The midcalf peroneal and posterior tibial veins are patent as well. There is a small right-sided popliteal cyst, measuring 1.0 x 1.0 x 1.3 cm. IMPRESSION: 1. No evidence of deep venous thrombosis in the right or left lower extremity. 2. Small right-sided popliteal cyst.
[2016-11-05] MEDS ORDERED: CITALOPRAM HBR20 MG PO ×2 (15:23→15:34)
--- NOTE | 2016-11-05 16:36 | PN- Att Addend ---
Attending MD Review Statement Attending Statement Attending MD Statement: examined this patient, discuss w/resident/PA/VEGETABLE BUNCHER, agreed w/resident/PA/VEGETABLE BUNCHER, reviewed EMR data (avail), discussed w/nursing Attending Assessment/Plan: Laboratory Tests 11/05/16 0634: Anion Gap 9, Estimated GFR > 60, BUN/Creatinine Ratio 20.0, Troponin I < 0.01, Triglycerides 119, Cholesterol 163, LDL Cholesterol, Calc 87, HDL Cholesterol 53 , Cholesterol/HDL Ratio 3, D-Dimer 747 H, CBC w Diff NO MAN DIFF REQ, RBC 4.59, MCV 82.0, MCH 27.9, RDW 14.0, MPV 8.5, Gran % 47.0, Lymphocytes % 39.1, Monocytes % 10.6 H, Eosinophils % 2.5, Basophils % 0.8, Absolute Granulocytes 2.5, Absolute Lymphocytes 2.1, Absolute Monocytes 0.6, Absolute Eosinophils 0.1, Absolute Basophils 0, PUBS MCHC 34.0 11/05/16 0030: Troponin I < 0.01 11/04/16 1830: Anion Gap 12, Estimated GFR > 60, BUN/Creatinine Ratio 22.9, Glucose 107 H, Calcium 9.4, Total Bilirubin 0.5, AST 18, ALT 33, Alkaline Phosphatase 99, Troponin I < 0.01, Ztt-R-Jbaqubbvkdt Pept 173 H, Total Protein 6.8, Albumin 3.9 , Globulin 2.9, Albumin/Globulin Ratio 1.3, CBC w Diff NO MAN DIFF REQ, RBC 4.77 , MCV 82.8, MCH 27.0, RDW 14.6 H, MPV 7.7, Gran % 58.2, Lymphocytes % 31.3, Monocytes % 8.5, Eosinophils % 1.6, Basophils % 0.4, Absolute Granulocytes 3.5, Absolute Lymphocytes 1.9, Absolute Monocytes 0.5, Absolute Eosinophils 0.1, Absolute Basophils 0, PUBS MCHC 32.6 L Vital Signs Date Time Temp Pulse Resp B/P B/P Pulse O2 O2 Flow FiO2 Mean Ox Delivery Rate 11/05 0903 98.3 66 19 122/80 94 Room Air 11/05 0823 74 122/80 11/04 2253 98.0 74 20 122/80 96 11/04 2226 95.7 73 16 130/56 97 Room Air 11/05 1999 95.4 80 16 119/74 97 Room Air 11/04 1833 97 Room Air 11/04 1803 97.1 82 16 144/81 96 Room Air Patient seen and examined at bedside. Discussed with patient the care plan. Patient admitted with intermittent chest pain that would last 15-20 minutes that was in the sternum area. No radiation of pain. Discussed with patient the medication changes we are doing. Patient will be discharged on Ranexa and her citalopram dose has been decreased to 20 mg at nighttime. Explained the reason why we're decreasing citalopram dose. Patient had Dopplers of the lower extremity done which was negative. Patient will be discharged and follow-up with PCP with a repeat EKG in 1 week time to make sure there is no QTC prolongation secondary to drug interaction between Ranexa and citalopram. The see the discharge summary for more details.
--- NOTE | 2016-11-06 00:12 | Discharge Summary ---
Visit Information Visit Dates Admission Date: 11/04/16 Discharge Date: 11/05/16 Hospital Course Course Attending Physician: YASMIN VAZQUEZ,YUVAL Singleton Primary Care Physician: VAMSHI CAMARENA MD Other Care Providers: Ginner Cody Thompson MD Consulting Request: Consulting Specialty: Cardiology Consulting Physician: Tay Burciaga MD Reason for Consult: Chest pain Hospital Course: Ms. Clark is a 86 y/o F with PMHx of T2DM, HTN and post-operative PE who was sent in by per PCP for evaluation of intermittent chest discomfort of several months duration. Chest discomfort was substernal without radiation to arm or jaw , non-exertional, resolving spontaneously after 5-10 minutes and not associated with shortness of breath, nausea, vomiting or diaphoresis. A recent stress test which had been performed as part of the pre-operative clearance for knee replacement surgery had demonstrated a combination of fixed and reversible anterolateral abnormalities, felt to be related to shifting breast attenuation per cardiology. Her most recent ECHO had shown normal left ventricular function. On initial presentation, vitals were normal. CBC, BMP and LFTs were unremarkable. EKG showed normal sinus rhythm with nonspecific ST-T wave changes. CXR was negative for acute abnormalities. Patient was admitted to telemetry for further evaluation and management of chest pain. Below are the issues that were addressed during current admission: #Intermittent chest pain: ACS was ruled out with serial EKGs and troponins which were negative. D-dimer was checked given patient's history of post-operative PE and came back elevated at 747. CTA Chest was not performed as there was low clinical suspicion for PE in the absence of hypoxia and shortness of breath. Doppler ultrasound of bilateral lower extremities was performed instead and was negative for DVT. Patient was seen by cardiology, who felt that pain could be related to CAD given nonspecific findings on recent nuclear stress test. However , patient adamantly refused cardiac catheterization despite the risk of myocardial infarction. As patient was not amenable to further testing, she was discharged with close outpatient follow-up. * Patient was instructed to follow up with cardiology within one week of discharge and return to the emergency room if she experiences any significant changes in her symptoms. * Per cardiology recommendations, patient was started on Ranexa 500 mg PO BID for the symptomatic treatment of possible angina. * Lrgmu-ae-xiawuyexp citalopram dose was reduced to 20 mg PO QHS daily from 20 mg PO BID as both Ranexa and citalopram are associated with QTC prolongation. * Patient should have her EKG checked by her PCP the week following discharge ( - 11/15/16) to evaluate for QTC prolongation. Allergies: Coded Allergies: Iodinated Contrast Media - Oral and (PER PT STATES SHE TAKES AN ALTERNATIVE VERSION 11/04/16) Sulfa (Sulfonamide Antibiotics) (PT DOESNT REMEMBER 11/04/16) ciprofloxacin (UNKNOWN 11/04/16) shellfish derived (ANAPHYLAXIS 11/04/16) Disposition Summary Disposition Principal Diagnosis: Intermittent chest pain, possible angina Additional Diagnosis: N/A Discharge Disposition: home or self care Discharge Instructions General Discharge Information Code Status: Do Not Resucitate/Intubat Patient's Diet: Diabetic Patient's Activity: Full Activity/No Limits Follow-Up Instructions/Appts: Please follow up with your primary care physician Dr. Vamshi Camarena and employee training specialist Dr. Tay Burciaga within one week of discharge. Please return to the ED if you experience any significant changes in your symptoms. Please have your EKG checked next week (11/11/16 - 11/15/16) by your primary care physician. Medications at Discharge Discharge Medications: Stop taking the following medications: Citalopram Hydrobromide (Citalopram HBr) 20 MG TABLET ORAL EVERY MORNING Days = 28 Continue taking these medications: Metformin HCl (Metformin HCl) 500 MG TABLET 1 Tablet ORAL TWICE DAILY Qty = 60 Comments: Last Taken: 11/05/16 Time: 1600 Losartan/Hydrochlorothiazide (Losartan-Hctz 50-12.5 MG Tab) 50 MG-12.5 MG TABLET 1 Tablet ORAL DAILY Qty = 90 Comments: Last Taken: 11/05/16 Time: 8 AM Citalopram Hydrobromide (Citalopram HBr) 20 MG TABLET 1 Tablet ORAL AT BEDTIME Qty = 180 Gabapentin (Gabapentin) 100 MG CAPSULE 1 Capsule ORAL TWICE DAILY Qty = 180 Comments: Last Taken: 11/05/16 Time: 8 AM Start taking the following new medications: Ranolazine (Ranexa) 500 MG TAB.ER.12H 1 Tablet ORAL TWICE DAILY Qty = 60 No Refills Copies To: KIM VAZQUEZ,CODY Hawkins; FAY VAZQUEZ,VAMSHI Resendez Attending MD Review Statement Documenting Attending: YASMIN VAZQUEZ,YUVAL Singleton Other Findings: please see my separate attending note for more details
== END 2016-11-05 18:52 | DRG 303 ==
LOC: ERH 17:49 → 1NO 21:38 → ERHI 21:38 → ENRESERV 21:55 → 1NO 22:37 → ENPENDDIS 11-05 15:46 → 1NO 11-05 18:52
PROVIDERS: Internal Medicine Infectious Disease; Physician Assistant Medical; ADMIT Internal Medicine
DX: I25.119 Atherosclerotic heart disease of native coronary artery with unspecified angina pectoris (principal); E11.42 Type 2 diabetes mellitus with diabetic polyneuropathy; I10 Essential (primary) hypertension; J45.909 Unspecified asthma, uncomplicated; F41.9 Anxiety disorder, unspecified; F32.9 Major depressive disorder, single episode, unspecified; Z86.711 Personal history of pulmonary embolism; E78.5 Hyperlipidemia, unspecified; Z79.84 Long term (current) use of oral hypoglycemic drugs; Z66 Do not resuscitate
CPT/HCPCS: 1NSP; 36415; 82436; 93005; 93010; 93970; J1644

== ENCOUNTER 2017-11-17 21:08 | Emergency (ER) | payer OTHER ==
[~2017-11-17] VITALS: Ht 160 cm; Wt 70.3 kg
[~2017-11-17 21:08] MED LIST: CITALOPRAM HBR20 MG PO; GABAPENTIN100 M2 PO; LOSARTAN-HCTZ1 EAC1 PO; METFORMIN HCL500 M3 PO; RANEXA500 M1 PO
--- NOTE | 2017-11-17 22:30 | ED GI/GU/ABDOMINAL COMPLAINT ---
History of Present Illness General Chief Complaint: General Adult Stated Complaint: "DIVERTICULITIS" CONSTIPATION X3 DAYS Source: patient, family, old records Exam Limitations: no limitations Vital Signs & Intake/Output Vital Signs & Intake/Output Vital Signs Date Time Temp Pulse Resp B/P B/P Pulse O2 O2 Flow FiO2 Mean Ox Delivery Rate 11/18 0032 97.9 69 18 145/73 97 Room Air 11/17 2126 98.4 85 20 154/86 97 Room Air ED Intake and Output 11/18 0000 11/17 1200 Intake Total 0 Output Total Balance 0 Intake, Oral 0 Patient 155 lb Weight Weight Reported by Patient Measurement Method Allergies Coded Allergies: Iodinated Contrast- Oral and IV Dye (IODINATED CONTRAST MEDIA - ORAL AND) (PER PT STATES SHE TAKES AN ALTERNATIVE VERSION 11/04/16) Sulfa (Sulfonamide Antibiotics) (PT DOESNT REMEMBER 11/04/16) ciprofloxacin (UNKNOWN 11/04/16) shellfish derived (ANAPHYLAXIS 11/04/16) Reconcile Medications Citalopram Hydrobromide (Citalopram HBr) 20 MG TABLET 1 TAB PO AT BEDTIME mental health (Reported) Gabapentin 100 MG CAPSULE 1 CAP PO BID NERVE PAIN (Reported) Losartan/Hydrochlorothiazide (Losartan-Hctz 50-12.5 MG Tab) 50 MG-12.5 MG TABLET 1 TAB PO DAILY BP (Reported) Metformin HCl 500 MG TABLET 1 TAB PO BID DM (Reported) Ranolazine (Ranexa) 500 MG TAB.ER.12H 1 TAB PO BID CHEST PAIN Triage Note: REPORTS TO BE CONSTIPATED. POSITIVE ABDOMINAL PAIN SINCE EARLIER TODAY. ALSO REPORTS OF HX OF DIVERTCULOSIS WITH BOUTS OF DIVERTICULITIS IN THE PAST. Triage Nurses Notes Reviewed? yes ? N Is pt currently ? No HPI: Patient presents to the emergency department complaining of abdominal pain and constipation for the past 3 days. Patient states she intermittently since constipated and her last bowel movement was 3 days ago. Patient has been taking [id number] stool softeners without any relief. Patient states that today she developed crampy abdominal pain. The pain is intermittent. The pain lasts a few minutes and then goes away entirely. The pain gets so bad it doubles her over. The pain is mainly in the right lower quadrant. There are no aggravating or mitigating factors. Upon arrival to the emergency department she did have a large loose bowel movement however has had 2 episodes of the pain even after the bowel movement. Patient denies any nausea or vomiting. There is no dysuria or hematuria. There is no back pain. Past History Travel History Traveled to [place] past 21 day No Medical History Any Pertinent Medical History? 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 No Review of Systems Review of Systems Constitutional: Reports: no symptoms. EENTM: Reports: no symptoms. Respiratory: Reports: no symptoms. Cardiovascular: Reports: no symptoms. GI: Reports: see HPI, abdominal pain, constipation. Genitourinary: Reports: no symptoms. Musculoskeletal: Reports: no symptoms. Skin: Reports: no symptoms. Neurological/Psychological: Reports: no symptoms. Hematologic/Endocrine: Reports: no symptoms. Immunologic/Allergic: Reports: no symptoms. All Other Systems: Reviewed and Negative Physical Exam Physical Exam General Appearance: well developed/nourished, alert, awake, mild distress Head: atraumatic, normal appearance Eyes: Bilateral: PERRL, EOMI. Ears, Nose, Throat, Mouth: hearing grossly normal, moist mucous membrane Neck: normal inspection, supple, full range of motion Respiratory: normal breath sounds, chest non-tender, no respiratory distress, lungs clear Cardiovascular: regular rate/rhythm, normal peripheral pulses Gastrointestinal: normal bowel sounds, soft, non-tender, no organomegaly Back: normal inspection Extremities: normal range of motion Neurologic/Psych: no motor/sensory deficits, awake, alert, oriented x 3, normal gait, normal mood/affect Skin: intact, normal color, warm/dry Core Measures ACS in differential dx? No Sepsis Present: No Sepsis Focused Exam Completed? No Progress Differential Diagnosis: bowel obstruction, diverticulitis, ischemic bowel, inflamm bowel dis, SBO Plan of Care: Orders Procedure Date/time Status Enema 11/17 2344 Active URINALYSIS 11/17 2229 Complete LIPASE 11/17 2229 Complete COMPREHENSIVE METABOLIC PANEL 11/17 2229 Complete CBC WITHOUT DIFFERENTIAL 11/17 2229 Complete AMYLASE 11/17 2229 Complete Laboratory Tests 11/17/173: Urine Color YEL, Urine Clarity CLEAR, Urine pH 6.0, Ur Specific [place] 1.010, Urine Protein NEG, Urine Ketones NEG, Urine Nitrite NEG, Urine Bilirubin NEG, Urine Urobilinogen 0.2, Ur Leukocyte Esterase NEG, Ur Microscopic EXAM NOT REQUIRED, Urine Hemoglobin NEG, Urine Glucose NEG 11/17/17 2248: Anion Gap 13, Estimated GFR > 60, BUN/Creatinine Ratio 23.3, Glucose 114 H, Calcium 9.3, Total Bilirubin 0.8, AST 18, ALT 28, Alkaline Phosphatase 77, Total Protein 6.3, Albumin 4.1, Globulin 2.2, Albumin/Globulin Ratio 1.9, Amylase 41, Lipase 66, CBC w Diff NO MAN DIFF REQ, RBC 4.45, MCV 86.6, MCH 29.0, MCHC 33.5, RDW 13.9, MPV 7.8, Gran % 64.5, Lymphocytes % 25.7, Monocytes % 8.6, Eosinophils % 1.0, Basophils % 0.2, Absolute Granulocytes 5.0, Absolute Lymphocytes 2.0, Absolute Monocytes 0.7 H, Absolute Eosinophils 0.1, Absolute Basophils 0 Diagnostic Imaging: Viewed by Me: Radiology Read, CT Scan. Discussed w/RAD: Radiology Read, CT Scan. Radiology Impression: PATIENT: KUSHAL MASCORRO PRESENT AGE: 87 PATIENT ACCOUNT NO: [id number] : 31 LOCATION: [facility] ORDERING PHYSICIAN: Maximo Rankin MD SERVICE DATE: 11/17/17 EXAM TYPE: RAD - [id number] VIEW EXAMINATION: XR ABDOMEN CLINICAL INDICATION: Abdominal pain COMPARISON: None TECHNIQUE: AP view of the abdomen. FINDINGS: Large volume of stool scattered throughout the colon. No dilated bowel loops. No radiopaque urinary calculi. Multiple calcified he was in lower pelvis. There is degenerative spondylosis of the spine. IMPRESSION: No acute abnormality. DICTATED BY: Wu Rodrigez MD DATE/TIME DICTATED:11/17/172233 MANAGER ENGAGEMENT :RAD.ALEXIS DATE/TIME TRANSCRIBED:11/17/172233 CONFIDENTIAL, DO NOT COPY WITHOUT APPROPRIATE AUTHORIZATION. <Electronically signed in Other Vendor System> SIGNED BY: Wu Rodrigez MD 11/17/172238, PATIENT: KUSHAL MASCORRO PRESENT AGE: 87 PATIENT ACCOUNT NO: [id number] : 31 LOCATION: [facility] ORDERING PHYSICIAN: Maximo Rankin MD SERVICE DATE: 11/17/17 EXAM TYPE: CAT - CT ABD & PELVIS W/O IV CONTRAS EXAMINATION: CT ABDOMEN AND PELVIS WITHOUT CONTRAST CLINICAL INFORMATION: Diffuse abdominal pain COMPARISON: 03/29/2008 TECHNIQUE: Multidetector volumetric imaging was performed from the superior aspect of the liver through the pubic symphysis. Sagittal and coronal reformatted images were obtained on the technologist's workstation. DLP: 339 mGy-cm FINDINGS: LUNG BASES: The lung bases appear clear. Coronary artery calcifications are noted. LIVER, GALLBLADDER, AND BILIARY TREE: The liver is normal in size, shape, and attenuation. No focal hepatic lesion or biliary ductal dilatation is present. The gallbladder is unremarkable with no evidence of radiopaque gallstones, gallbladder wall thickening, or obvious pericholecystic inflammatory changes. PANCREAS: Moderate atrophy of the pancreatic parenchyma. No focal lesion identified. SPLEEN: Unremarkable. ADRENAL GLANDS: Unremarkable. KIDNEYS AND URETERS: The kidneys are normal in size, shape, and attenuation. No hydronephrosis or hydroureter. No perinephric stranding. 0.2 cm left midpole renal calculus, 8.5 cm from the posterior axillary line. BLADDER: Unremarkable. GASTROINTESTINAL TRACT: Stomach is decompressed with no gross abnormality. The small bowel is normal in caliber. No obstruction. Colonic diverticulosis noted without evidence of diverticulitis. Colonic anastomosis seen in the region of the rectum. No free air or free fluid. ABDOMINAL WALL: Fat-containing ventral hernias superior to the umbilicus. Mild stranding associated with the hernia seen on series 2 image 46. The hernia neck measures 1.6 cm. This contains only fat. LYMPH NODES: Normal. VASCULAR: Normal caliber aorta with mild atherosclerotic calcifications. PELVIC VISCERA: The uterus is not seen. No adnexal mass. OSSEOUS STRUCTURES: Grade 1 anterolisthesis of L4 on L5. Multilevel degenerative changes of the spine. Mild degenerative changes in the hips. IMPRESSION: Small fat-containing ventral supraumbilical hernias. There is mild inflammation associated with one such hernia. Otherwise, no acute findings of the abdomen or pelvis. Tiny nonobstructing left midpole renal calculus. Colonic diverticulosis without diverticulitis. DICTATED BY: Morgan Hassan MD DATE/TIME DICTATED:11/18/1722 MANAGER ENGAGEMENT: REINA DATE/TIME TRANSCRIBED:11/18/1722 CONFIDENTIAL, DO NOT COPY WITHOUT APPROPRIATE AUTHORIZATION. <Electronically signed in Other Vendor System> SIGNED BY: Morgan Hassan MD 11/18/1729 Initial ED EKG: none Comments: Patient is patient with an enema at this time. Patient states she will wait to see what the results of the CAT scan show. Discussed results of blood work and CAT scan with the patient and her daughter. Question of been answered. Patient is now willing to have soapsuds enema. Departure Departure Disposition: HOME OR SELF CARE Condition: Stable Clinical Impression Primary Impression: Lower abdominal pain, unspecified Secondary Impressions: Constipation Referrals: Vamshi Camarena MD (PCP/Family) Additional Instructions: FOLLOW UP WITH DR. CAMARENA THIS WEEK RETURNIF SYMPTOMS WORSEN OR FOR ANY CONCERNS Departure Forms: Customer Survey General Discharge Information
--- NOTE | 2017-11-17 22:39 | RADIOLOGY REPORT ---
EXAMINATION: XR ABDOMEN CLINICAL INDICATION: Abdominal pain COMPARISON: None TECHNIQUE: AP view of the abdomen. FINDINGS: Large volume of stool scattered throughout the colon. No dilated bowel loops. No radiopaque urinary calculi. Multiple calcified he was in lower pelvis. There is degenerative spondylosis of the spine. IMPRESSION: No acute abnormality.
[2017-11-17 22:58] LABS: ABSOLUTE BASOPHIL COUNT 0 /CUMM (0.0-0.2); ABSOLUTE EOSINOPHIL COUNT 0.1 /CUMM (0.0-0.7); ABSOLUTE MONOCYTE COUNT 0.7 /CUMM (0.10-0.60); BASOPHIL % 0.2 % (0.0-2.0); GRANULOCYTE % 64.5 % (42.2-75.2); HEMATOCRIT 38.5 % (37-47); MEAN CORPUSCULAR HGB CONC 33.5 G/DL (33.0-37.0); MEAN CORPUSCULAR VOLUME 86.6 FL (81.0-99.0); MEAN PLATELET VOLUME 7.8 FL (7.4-10.4); PLATELET COUNT 252 /CUMM (130-400); RBC DISTRIBUTION WIDTH 13.9 % (11.5-14.5); RED BLOOD CELL CT 4.45 /CUMM (4.20-5.40); WHITE BLOOD CELL COUNT 7.8 /CUMM (4.8-10.8)
--- NOTE | 2017-11-18 00:30 | CT SCAN REPORT ---
EXAMINATION: CT ABDOMEN AND PELVIS WITHOUT CONTRAST CLINICAL INFORMATION: Diffuse abdominal pain COMPARISON: 03/29/2008 TECHNIQUE: Multidetector volumetric imaging was performed from the superior aspect of the liver through the pubic symphysis. Sagittal and coronal reformatted images were obtained on the technologist's workstation. DLP: 339 mGy-cm FINDINGS: LUNG BASES: The lung bases appear clear. Coronary artery calcifications are noted. LIVER, GALLBLADDER, AND BILIARY TREE: The liver is normal in size, shape, and attenuation. No focal hepatic lesion or biliary ductal dilatation is present. The gallbladder is unremarkable with no evidence of radiopaque gallstones, gallbladder wall thickening, or obvious pericholecystic inflammatory changes. PANCREAS: Moderate atrophy of the pancreatic parenchyma. No focal lesion identified. SPLEEN: Unremarkable. ADRENAL GLANDS: Unremarkable. KIDNEYS AND URETERS: The kidneys are normal in size, shape, and attenuation. No hydronephrosis or hydroureter. No perinephric stranding. 0.2 cm left midpole renal calculus, 8.5 cm from the posterior axillary line. BLADDER: Unremarkable. GASTROINTESTINAL TRACT: Stomach is decompressed with no gross abnormality. The small bowel is normal in caliber. No obstruction. Colonic diverticulosis noted without evidence of diverticulitis. Colonic anastomosis seen in the region of the rectum. No free air or free fluid. ABDOMINAL WALL: Fat-containing ventral hernias superior to the umbilicus. Mild stranding associated with the hernia seen on series 2 image 46. The hernia neck measures 1.6 cm. This contains only fat. LYMPH NODES: Normal. VASCULAR: Normal caliber aorta with mild atherosclerotic calcifications. PELVIC VISCERA: The uterus is not seen. No adnexal mass. OSSEOUS STRUCTURES: Grade 1 anterolisthesis of L4 on L5. Multilevel degenerative changes of the spine. Mild degenerative changes in the hips. IMPRESSION: Small fat-containing ventral supraumbilical hernias. There is mild inflammation associated with one such hernia. Otherwise, no acute findings of the abdomen or pelvis. Tiny nonobstructing left midpole renal calculus. Colonic diverticulosis without diverticulitis.
[2017-11-18 01:36] VITALS: BP 145/76
[2018-02-19] MEDS ORDERED: AMOXICILLIN500 M3 PO (04:58)
[2018-02-19] MEDS ORDERED: ULTRAM50 M1 PO (04:58)
== END 2017-11-18 01:42 ==
LOC: ERH 21:08
PROVIDERS: Emergency Medicine
DX: K59.00 Constipation, unspecified (principal)
CPT/HCPCS: 74018; 74176; 81003